=== PATIENT | male | born 1985 | race Caucasian/White ===

== ENCOUNTER 2022-05-20 14:58 | Emergency (ER) | payer BC ==
[2022-05-20] MEDS ORDERED: predniSONE 20 MG TAB ONE (16:17)
== END 2022-05-20 16:44 | disposition home or self-care (01) ==
LOC: BURERS 14:58
DX: S16.1XXA Strain of muscle, fascia and tendon at neck level, initial encounter (principal); X58.XXXA Exposure to other specified factors, initial encounter
CPT/HCPCS: 99283; J7512